=== PATIENT | female | born 2000 | race Hispanic/Latino ===

== ENCOUNTER 2019-06-11 21:36 | Emergency (ER) | payer OTHER ==
[~2019-06-11] VITALS: Ht 149.9 cm; Wt 80.7 kg
[~2019-06-11 21:36] MED LIST: FERRTASA PO; IBUP80TA PO; MAPA500T2 PO; PRENTAB7 PO
[2019-06-11] MEDS ORDERED: INFANRIX VACCINE SYRINGE (DIPHTH/TET/ACEL PERTUS PEDIATRIC) (CPT 90700) IM ONE (23:00)
[2019-06-11] MEDS ORDERED: ADACEL/BOOSTRIX VACCINE (DIPHTH/PERTUSS/ACELL/TETANUS)0.5ML SYR (90715) IM ONE (23:15)
[2019-06-11] MEDS ORDERED: LIDOCAINE 1% MDV 20ML VIAL SC ONE (23:15)
[2019-06-11] MEDS ORDERED: AUGMENTIN 875 MG TAB PO ONE (23:45)
[2019-06-11] MEDS ORDERED: MUPIROCIN 2% OINT 22 GM TUBE TOP ONE (23:45)
[2019-06-11] MEDS ORDERED: AUGM875T28 PO (23:57)
[2019-06-12 00:15] VITALS: BP 109/56
== END 2019-06-12 00:20 | disposition home or self-care (01) ==
LOC: M ED 21:36
DX: S51.011A Laceration without foreign body of right elbow, initial encounter (principal); W22.8XXA Striking against or struck by other objects, initial encounter; Y92.828 Other wilderness area as the place of occurrence of the external cause; Y93.16 Activity, rowing, canoeing, kayaking, rafting and tubing; F17.210 Nicotine dependence, cigarettes, uncomplicated

== ENCOUNTER 2020-01-04 10:57 | Emergency (ER) | payer OTHER ==
[~2020-01-04] VITALS: Ht 147.3 cm; Wt 85.5 kg
[~2020-01-04 10:57] MED LIST changes: +AUGM875T28 PO
[2020-01-04] MEDS ORDERED: MUCI600T31 PO (11:43)
[2020-01-04] MEDS ORDERED: AFRI0.058 (11:43)
[2020-01-04] MEDS ORDERED: ALL10TAB2 PO (11:43)
[2020-01-04 11:56] VITALS: BP 101/53
== END 2020-01-04 11:57 | disposition home or self-care (01) ==
LOC: M ED 10:57
DX: J06.9 Acute upper respiratory infection, unspecified (principal); Z79.899 Other long term (current) drug therapy

== ENCOUNTER 2020-01-18 04:42 | Emergency (ER) | payer OTHER ==
[~2020-01-18] VITALS: Ht 147.3 cm; Wt 87.0 kg
[2020-01-18 04:42] VITALS: BP 128/80
[~2020-01-18 04:42] MED LIST changes: +AFRI0.058; +ALL10TAB2 PO; +MUCI600T31 PO
[2020-01-18] MEDS ORDERED: KETOROLAC 60 MG/2 ML VIAL (J1885) IM ONE (05:45)
[2020-01-18] MEDS ORDERED: NAPR-885 PO (06:16)
[2020-01-18] MEDS ORDERED: AUGM875T28 PO (06:16)
== END 2020-01-18 06:27 | disposition home or self-care (01) ==
LOC: M ED 04:42
DX: S02.5XXA Fracture of tooth (traumatic), initial encounter for closed fracture (principal); X58.XXXA Exposure to other specified factors, initial encounter; Y92.9 Unspecified place or not applicable; Y93.9 Activity, unspecified
CPT/HCPCS: 96372; 99282; J1885